=== PATIENT | female | born 1990 | race Caucasian/White ===

== ENCOUNTER 2021-10-30 17:28 | Emergency (ER) | payer OTHER ==
[~2021-10-30] VITALS: Ht 165.1 cm; Wt 68.0 kg
[2021-10-30] MEDS ORDERED: ONDANSETRON 4MG ODT PO ONE (18:00)
[2021-10-30 18:49] LABS: BG BASE EXCESS 0.2 mmol/L (-2.0-2.0); BG CARBOXYHEMOGLOBIN 0.3 % (0.5-1.5); BG DEOXYHEMOGLOBIN 3.2 % (0.0-5.0); BG FRACTION INSPIRED OXYGEN 21; BG HCO3 ACT 24.1 mmol/L (22.0-26.0); BG METHEMOGLOBIN 0.5 % (0.0-1.5); BG OXYGEN SATURATION 96.8 % (92.0-98.5); BG PCO2 37.1 mmHg (35.0-45.0); BG PH 7.431 (7.350-7.450); BG SAMPLE SITE LEFT BRACHIAL; BG VENT MODE ROOM AIR
[2021-10-30 20:15] VITALS: BP 137/72
== END 2021-10-30 20:22 | disposition home or self-care (01) ==
LOC: ER 18:01
DX: R05.9 Cough, unspecified (principal); R11.2 Nausea with vomiting, unspecified; J45.909 Unspecified asthma, uncomplicated; Z20.822 Contact with and (suspected) exposure to COVID-19
CPT/HCPCS: 36600; 82375; 82805; 87426; 99283; Q0162